=== PATIENT | male | born 1950 | race Caucasian/White ===

== ENCOUNTER 2016-10-10 09:09 | Emergency (ER) | payer MEDICARE ==
[~2016-10-10] VITALS: Ht 160 cm; Wt 56.8 kg
[~2016-10-10 09:09] MED LIST: ADVAIR IH; ASPIRIN E.C. 8181 MG PO; COREG 3.123.125 MG/T PO; COREG3.125 MG PO; GLUCOPHAGE850 MG/TAB PO; GLUCOTROL10 MG PO; LANTUS100 U/ML SQ; LASIX 40MG TABL40 MG PO; LASIX20 MG PO; LEVAQUIN 5500 MG/TA1 PO; MEDROL 4MG DOSPA4 MG PO; METFORMIN750 MG PO; PROVENTIL0.09 MG/A1 IH; RT ADVAIR 228 DISKUS IH; TOPROL XL 25MG25 MG PO
[2016-10-10 09:11] VITALS: BP 138/69; PULSE 83; TEMP 99.1
[2016-10-10] MEDS ORDERED: LEVEMIR SQ (09:18)
[2016-10-10] MEDS ORDERED: NOVLOG SQ (09:19)
[2016-10-10 10:29] LABS: ADJUSTED CALCIUM 9.1 mg/dL (8.4-10.2); ALBUMIN 3.4 gm/dL (3.5-5.0); BILIRUBIN,TOTAL 1.2 mg/dL (0.0-1.0); CALCIUM 8.6 mg/dL (8.4-10.2); CREATININE, serum 0.79 mg/dL (0.66-1.25); POTASSIUM 4.3 mmol/L (3.4-5.0); TOTAL PROTEIN 6.2 gm/dL (6.4-8.2)
[2016-10-10 10:31] LABS: BASO # 0.1 (0.0-0.2); BASO % 0.4 % (0.0-2.0); EOS # 0.1 (0.0-0.7); EOS % 0.6 % (0-4.0); GRAN # 10.8 (1.4-6.5); GRAN % 79.3 % (42.2-75.2); HEMATOCRIT 44.6 % (42.0-52.0); HEMOGLOBIN 15.1 g/dl (13.5-18.0); LYMPH # 1.7 (1.2-3.4); LYMPH % 12.4 % (20.0-51.0); MEAN CELL VOLUME 86 fl (80.0-100.0); MEAN CORPUSCULAR HEMOGLOBIN 29 pg (27.0-31.0); MEAN CORPUSCULAR HGB CONC 34 g/dl (33.0-37.0); MEAN PLATELET VOLUME 9.7 fl (7.4-10.4); MONO # 0.9 (0.1-0.6); MONO % 6.9 % (1.7-9.3); PLATELET COUNT 308 K/mm3 (130-400); RED BLOOD COUNT 5.16 M/mm3 (4.20-5.60); WHITE BLOOD COUNT 13.6 K/mm3 (4.8-10.8)
[2016-10-10 10:44] LABS: PH 5 (5-8); SQUAMOUS EPITHELIAL 0-2 /hpf; URINE APPEARANCE Clear; URINE BACTERIA None Seen /hpf; URINE BILIRUBIN Negative (NEGATIVE); URINE BLOOD Negative (NEGATIVE); URINE COLOR Yellow; URINE GLUCOSE 3+ (NEGATIVE); URINE KETONE Trace (NEGATIVE); URINE UROBILINOGEN Negative (NEGATIVE)
[2016-10-10] MEDS ORDERED: DOXYCYCLINE 10100 MG PO (11:16)
== END 2016-10-10 11:41 | disposition home or self-care (01) ==
LOC: COL.ER 09:09
PROVIDERS: Emergency Medicine
DX: L03.211 Cellulitis of face (principal); E11.65 Type 2 diabetes mellitus with hyperglycemia; Z79.4 Long term (current) use of insulin

== ENCOUNTER → 2017-12-21 | Outpatient (CLI) | payer MEDICARE ==
[~2017-12-21] MED LIST changes: +DOXYCYCLINE 10100 MG PO; +LEVEMIR SQ; +NOVLOG SQ
== END ==
LOC: SUN.DIA 08:43
DX: E11.9 Type 2 diabetes mellitus without complications (principal); Z79.4 Long term (current) use of insulin; E78.5 Hyperlipidemia, unspecified; Z68.21 Body mass index [BMI] 21.0-21.9, adult; Z71.3 Dietary counseling and surveillance; F17.210 Nicotine dependence, cigarettes, uncomplicated
CPT/HCPCS: G0108

== ENCOUNTER 2018-03-12 11:17 | Emergency (ER) | payer MEDICARE ==
[~2018-03-12] VITALS: Ht 160 cm; Wt 54.5 kg
[2018-03-12 11:20] VITALS: BP 127/58; TEMP 97.8
[2018-03-12] MEDS ORDERED: PRAVACHOL 40MG40 MG PO (12:39)
[2018-03-12] MEDS ORDERED: PLETAL50 MG PO (12:41)
[2018-03-12] MEDS ORDERED: ATARAX 10MG10 MG/TAB PO (12:41)
[2018-03-12] MEDS ORDERED: NEURONTIN300 MG/CAP PO (12:41)
[2018-03-12] MEDS ORDERED: K-DUR 10 MEQ T10 MEQ PO (12:42)
[2018-03-12 13:31] VITALS: PULSE 61
== END 2018-03-12 13:32 | disposition home or self-care (01) ==
LOC: COL.ER 11:17
DX: L03.012 Cellulitis of left finger (principal); E11.9 Type 2 diabetes mellitus without complications; I10 Essential (primary) hypertension; J43.9 Emphysema, unspecified; F17.210 Nicotine dependence, cigarettes, uncomplicated; Z79.4 Long term (current) use of insulin; Z79.82 Long term (current) use of aspirin

== ENCOUNTER → 2018-08-06 | Outpatient (CLI) | payer MEDICARE ==
[~2018-08-06] MED LIST changes: +ATARAX 10MG10 MG/TAB PO; +K-DUR 10 MEQ T10 MEQ PO; +NEURONTIN300 MG/CAP PO; +PLETAL50 MG PO; +PRAVACHOL 40MG40 MG PO
== END ==
LOC: COL.RAD 12:36
DX: I70.213 Atherosclerosis of native arteries of extremities with intermittent claudication, bilateral legs (principal); I74.5 Embolism and thrombosis of iliac artery; N40.0 Benign prostatic hyperplasia without lower urinary tract symptoms; I74.3 Embolism and thrombosis of arteries of the lower extremities
CPT/HCPCS: Q9967

== ENCOUNTER → 2018-12-31 | Outpatient (CLI) | payer MEDICARE ==
[~2018-12-31] MED LIST changes: +FLOMAX 0.40.4 MG/CAP PO
[2018-12-31 11:54] LABS: BASO # 0.1 (0.0-0.2); BASO % 0.6 % (0.0-2.0); EOS # 0.4 (0.0-0.7); EOS % 2.2 % (0-4.0); GRAN # 10.5 (1.4-6.5); GRAN % 64.6 % (42.2-75.2); HEMOGLOBIN 10.2 g/dl (13.5-18.0); LYMPH # 4.2 (1.2-3.4); LYMPH % 25.8 % (20.0-51.0); MEAN CELL VOLUME 68 fl (80.0-100.0); MEAN CORPUSCULAR HEMOGLOBIN 21 pg (27.0-31.0); MEAN CORPUSCULAR HGB CONC 30 g/dl (33.0-37.0); MEAN PLATELET VOLUME 9.1 fl (7.4-10.4); MONO % 6.2 % (1.7-9.3); PLATELET COUNT 417 K/mm3 (130-400); RED BLOOD COUNT 4.96 M/mm3 (4.20-5.60); REDCELL DISTRIBUTION WIDTH-CV 16.9 % (11.5-14.5)
[2018-12-31 11:55] LABS: HEMATOCRIT 33.5 % (42.0-52.0)
[2018-12-31 12:04] LABS: ALANINE AMINOTRANSFERASE 8 U/L (21-72); ALBUMIN 3.5 gm/dL (3.5-5.0); ALKALINE PHOSPHATASE 122 U/L (50-136); ANION GAP 10 mmol/L (7-16); AST,SGOT 21 U/L (15-37); BILIRUBIN,TOTAL 0.3 mg/dL (0.0-1.0); BLOOD UREA NITROGEN 30 mg/dL (9-20); CALCIUM 9.2 mg/dL (8.4-10.2); CARBON DIOXIDE 25 mmol/L (22-30); CHLORIDE 99 mmol/L (98-107); CREATININE, serum 0.82 (0.66-1.25); GLUCOSE 138 mg/dL (74-106); SODIUM 134 mmol/L (137-145); TOTAL PROTEIN 6.9 gm/dL (6.4-8.2)
[2018-12-31 12:16] LABS: TROPONIN-I < 0.012 ng/mL (0.000-0.035)
== END ==
LOC: COL.RAD 11:14 → COL.LAB 11:14
PROVIDERS: Registered Nurse
DX: E11.65 Type 2 diabetes mellitus with hyperglycemia (principal); R91.8 Other nonspecific abnormal finding of lung field; R06.02 Shortness of breath; E78.5 Hyperlipidemia, unspecified; F17.210 Nicotine dependence, cigarettes, uncomplicated; M79.602 Pain in left arm

== ENCOUNTER 2019-01-02 20:25 | Emergency (ER) | payer MEDICARE ==
[~2019-01-02] VITALS: Ht 157.5 cm; Wt 50.0 kg
[~2019-01-02 20:25] MED LIST changes: -FLOMAX 0.40.4 MG/CAP PO
[2019-01-02 20:45] VITALS: TEMP 97.3
[2019-01-02 21:38] LABS: COLLECTION METHOD CLEAN CATCH
[2019-01-02 21:43] LABS: BASO # 0.1 (0.0-0.2); BASO % 0.7 % (0.0-2.0); EOS # 0.2 (0.0-0.7); EOS % 1.6 % (0-4.0); GRAN # 9.8 (1.4-6.5); GRAN % 72.4 % (42.2-75.2); LYMPH # 2.6 (1.2-3.4); LYMPH % 18.9 % (20.0-51.0); MEAN CELL VOLUME 68 fl (80.0-100.0); MEAN CORPUSCULAR HGB CONC 31 g/dl (33.0-37.0); MONO # 0.8 (0.1-0.6); MONO % 5.8 % (1.7-9.3); PLATELET COUNT 398 K/mm3 (130-400); RED BLOOD COUNT 4.75 M/mm3 (4.20-5.60); REDCELL DISTRIBUTION WIDTH-CV 17.3 % (11.5-14.5)
[2019-01-02 21:47] LABS: HEMATOCRIT 32.5 % (42.0-52.0); HEMOGLOBIN 9.9 g/dl (13.5-18.0); MEAN CORPUSCULAR HEMOGLOBIN 21 pg (27.0-31.0)
[2019-01-02 22:03] LABS: PH 5 (5-8); SQUAMOUS EPITHELIAL None Seen /hpf; URINE APPEARANCE Hazy; URINE BACTERIA None Seen /hpf; URINE BILIRUBIN Negative (NEGATIVE); URINE BLOOD Negative (NEGATIVE); URINE COLOR Yellow; URINE GLUCOSE 3+ (NEGATIVE); URINE KETONE Negative (NEGATIVE); URINE LEUKOCYTE ESTERASE 2+ (NEGATIVE); URINE NITRATE Negative (NEGATIVE); URINE PROTEIN(semi-quant) Negative (NEGATIVE); URINE UROBILINOGEN Negative (NEGATIVE)
[2019-01-02 22:26] LABS: ALBUMIN 3.3 gm/dL (3.5-5.0); BILIRUBIN,TOTAL 0.3 mg/dL (0.0-1.0); CREATININE, serum 0.62 (0.66-1.25); POTASSIUM 4.6 mmol/L (3.4-5.0); TOTAL PROTEIN 6.5 gm/dL (6.4-8.2)
[2019-01-02] MEDS ORDERED: FLOMAX 0.40.4 MG/CAP PO (22:49)
[2019-01-02 23:48] VITALS: BP 112/61
[2019-01-03 00:26] VITALS: PULSE 91
== END 2019-01-03 00:26 | disposition home or self-care (01) ==
LOC: COL.ER 20:25
PROVIDERS: Emergency Medicine
DX: N39.0 Urinary tract infection, site not specified (principal); E11.65 Type 2 diabetes mellitus with hyperglycemia; Z79.84 Long term (current) use of oral hypoglycemic drugs; Z79.82 Long term (current) use of aspirin
CPT/HCPCS: J0696; J1815; J7030

== ENCOUNTER 2019-01-08 16:51 | Emergency (ER) | payer MEDICARE ==
[~2019-01-08] VITALS: Ht 157.5 cm; Wt 50.0 kg
[~2019-01-08 16:51] MED LIST changes: +FLOMAX 0.40.4 MG/CAP PO
[2019-01-08 17:44] VITALS: TEMP 98.6
[2019-01-08 19:07] LABS: COLLECTION METHOD IN
[2019-01-08 19:15] LABS: PH 5 (5-8); SQUAMOUS EPITHELIAL None Seen /hpf; URINE APPEARANCE Clear; URINE BACTERIA None Seen /hpf; URINE BILIRUBIN Negative (NEGATIVE); URINE BLOOD Negative (NEGATIVE); URINE COLOR Yellow; URINE GLUCOSE 3+ (NEGATIVE); URINE KETONE Trace (NEGATIVE); URINE LEUKOCYTE ESTERASE Negative (NEGATIVE); URINE NITRATE Negative (NEGATIVE); URINE PROTEIN(semi-quant) Negative (NEGATIVE); URINE RBC None Seen /hpf; URINE UROBILINOGEN Negative (NEGATIVE)
[2019-01-08 19:36] LABS: BASO # 0.1 (0.0-0.2); BASO % 0.6 % (0.0-2.0); EOS # 0.2 (0.0-0.7); EOS % 1.9 % (0-4.0); GRAN # 8.6 (1.4-6.5); GRAN % 68.6 % (42.2-75.2); LYMPH # 2.9 (1.2-3.4); LYMPH % 22.7 % (20.0-51.0); MEAN CELL VOLUME 69 fl (80.0-100.0); MEAN CORPUSCULAR HGB CONC 30 g/dl (33.0-37.0); MEAN PLATELET VOLUME 9.6 fl (7.4-10.4); MONO # 0.8 (0.1-0.6); PLATELET COUNT 410 K/mm3 (130-400); RED BLOOD COUNT 4.44 M/mm3 (4.20-5.60); REDCELL DISTRIBUTION WIDTH-CV 17.5 % (11.5-14.5)
[2019-01-08 19:46] LABS: CALCIUM 8.5 mg/dL (8.4-10.2); CREATININE, serum 0.72 (0.66-1.25); HEMATOCRIT 30.4 % (42.0-52.0); HEMOGLOBIN 9.2 g/dl (13.5-18.0); MEAN CORPUSCULAR HEMOGLOBIN 21 pg (27.0-31.0); POTASSIUM 3.4 mmol/L (3.4-5.0)
[2019-01-08] MEDS ORDERED: FLOMAX 0.40.4 MG/CAP PO (21:57)
[2019-01-08 22:02] VITALS: BP 117/63; PULSE 87
== END 2019-01-08 22:02 | disposition home or self-care (01) ==
LOC: COL.ER 16:51
PROVIDERS: Physician Assistant
DX: R33.9 Retention of urine, unspecified (principal); E11.65 Type 2 diabetes mellitus with hyperglycemia; R79.89 Other specified abnormal findings of blood chemistry; I10 Essential (primary) hypertension; J43.9 Emphysema, unspecified; F17.210 Nicotine dependence, cigarettes, uncomplicated; Z90.89 Acquired absence of other organs; Z79.4 Long term (current) use of insulin
CPT/HCPCS: J1815; J7030

== ENCOUNTER 2019-02-14 10:54 | Emergency (ER) | payer MEDICARE ==
[~2019-02-14] VITALS: Ht 157.5 cm; Wt 50.0 kg
[2019-02-14 11:02] VITALS: TEMP 99
[2019-02-14 11:41] LABS: BASO # 0.1 (0.0-0.2); BASO % 0.3 % (0.0-2.0); EOS # 0.1 (0.0-0.7); EOS % 0.5 % (0-4.0); GRAN # 15.8 (1.4-6.5); LYMPH # 1.7 (1.2-3.4); LYMPH % 9.1 % (20.0-51.0); MEAN CELL VOLUME 68 fl (80.0-100.0); MEAN CORPUSCULAR HGB CONC 29 g/dl (33.0-37.0); MEAN PLATELET VOLUME 9.3 fl (7.4-10.4); MONO # 1.3 (0.1-0.6); MONO % 6.6 % (1.7-9.3); PLATELET COUNT 516 K/mm3 (130-400); RED BLOOD COUNT 4.53 M/mm3 (4.20-5.60)
[2019-02-14 11:42] LABS: HEMATOCRIT 30.8 % (42.0-52.0); MEAN CORPUSCULAR HEMOGLOBIN 20 pg (27.0-31.0)
[2019-02-14 11:50] LABS: ALBUMIN 3.2 gm/dL (3.5-5.0); BILIRUBIN,TOTAL 0.5 mg/dL (0.0-1.0); CALCIUM 8.8 mg/dL (8.4-10.2); CREATININE, serum 0.53 (0.66-1.25); TOTAL PROTEIN 6.7 gm/dL (6.4-8.2)
[2019-02-14 11:52] LABS: POTASSIUM 2.9 mmol/L (3.4-5.0)
[2019-02-14 12:05] LABS: COLLECTION METHOD CATHETER
[2019-02-14 12:32] LABS: MUCOUS Present /lpf; PH 5 (5-8); SQUAMOUS EPITHELIAL None Seen /hpf; URINE APPEARANCE Cloudy; URINE BACTERIA Occasional /hpf; URINE BILIRUBIN Negative (NEGATIVE); URINE BLOOD 3+ (NEGATIVE); URINE COLOR Amber; URINE GLUCOSE Negative (NEGATIVE); URINE KETONE Trace (NEGATIVE); URINE LEUKOCYTE ESTERASE 2+ (NEGATIVE); URINE NITRATE Positive (NEGATIVE); URINE PROTEIN(semi-quant) 2+ (NEGATIVE); URINE RBC >50 /hpf
[2019-02-14] MEDS ORDERED: PYRIDIUM200 M1 PO (13:33)
[2019-02-14] MEDS ORDERED: OMNICEF 300MG300 MG PO (13:33)
[2019-02-14 15:04] VITALS: BP 113/45; PULSE 73
== END 2019-02-14 15:25 | disposition home or self-care (01) ==
LOC: COL.ER 10:54
PROVIDERS: Emergency Medicine
DX: N39.0 Urinary tract infection, site not specified (principal); E11.9 Type 2 diabetes mellitus without complications; Z79.82 Long term (current) use of aspirin; Z79.4 Long term (current) use of insulin
CPT/HCPCS: J0696; J1450; J3480; J7030

== ENCOUNTER → 2019-03-03 | Outpatient (CLI) | payer MEDICARE ==
[~2019-03-03] MED LIST changes: +OMNICEF 300MG300 MG PO; +PYRIDIUM200 M1 PO
[2019-03-03 11:12] LABS: MEAN CELL VOLUME 67 fl (80.0-100.0); MEAN CORPUSCULAR HGB CONC 29 g/dl (33.0-37.0); MEAN PLATELET VOLUME 9.7 fl (7.4-10.4); PLATELET COUNT 387 K/mm3 (130-400); REDCELL DISTRIBUTION WIDTH-CV 17.5 % (11.5-14.5)
[2019-03-03 11:16] LABS: HEMOGLOBIN 9.7 g/dl (13.5-18.0); MEAN CORPUSCULAR HEMOGLOBIN 19 pg (27.0-31.0)
[2019-03-03 11:22] LABS: ALBUMIN 3.5 gm/dL (3.5-5.0); CALCIUM 8.7 mg/dL (8.4-10.2); CREATININE, serum 0.61 (0.66-1.25); POTASSIUM 4.4 mmol/L (3.4-5.0); TOTAL PROTEIN 6.7 gm/dL (6.4-8.2)
== END ==
LOC: COL.LAB 10:24
PROVIDERS: Internal Medicine Interventional Cardiology
DX: I70.213 Atherosclerosis of native arteries of extremities with intermittent claudication, bilateral legs (principal)

== ENCOUNTER → 2019-12-06 | Outpatient (CLI) | payer MEDICARE ==
[~2019-12-06] MED LIST changes: +AMOXICILLIN 8751 TAB PO; +BACTRIM DS 8001 TAB PO; +PLAVIX 75MG TAB75 MG PO; +TEMOVATE0.052
[2019-12-06 11:51] LABS: COLLECTION METHOD CATHETER
[2019-12-06 11:55] LABS: MEAN CELL VOLUME 68 fl (80.0-100.0); MEAN CORPUSCULAR HGB CONC 29 g/dl (33.0-37.0); MEAN PLATELET VOLUME 9.1 fl (7.4-10.4); PLATELET COUNT 373 K/mm3 (130-400); RED BLOOD COUNT 4.68 M/mm3 (4.20-5.60)
[2019-12-06 11:58] LABS: HEMATOCRIT 31.6 % (42.0-52.0); HEMOGLOBIN 9.1 g/dl (13.5-18.0); MEAN CORPUSCULAR HEMOGLOBIN 19 pg (27.0-31.0)
[2019-12-06 12:12] LABS: ALANINE AMINOTRANSFERASE 9 U/L (4-49); ALBUMIN 3.5 gm/dL (3.5-5.0); AST,SGOT 15 U/L (15-37); BILIRUBIN,TOTAL 0.6 mg/dL (0.0-1.0); BLOOD UREA NITROGEN 20 mg/dL (9-20); CHLORIDE 99 mmol/L (98-107); POTASSIUM 4.4 mmol/L (3.4-5.0)
[2019-12-06 12:18] LABS: BUDDING YEAST Present /hpf; MUCOUS Present /lpf; PH 5 (5-8); SQUAMOUS EPITHELIAL None Seen /hpf; URINE APPEARANCE Cloudy; URINE BACTERIA Rare /hpf; URINE BILIRUBIN Negative (NEGATIVE); URINE BLOOD 2+ (NEGATIVE); URINE COLOR Yellow; URINE GLUCOSE 3+ (NEGATIVE); URINE KETONE Negative (NEGATIVE); URINE LEUKOCYTE ESTERASE 3+ (NEGATIVE); URINE NITRATE Positive (NEGATIVE); URINE PROTEIN(semi-quant) 1+ (NEGATIVE); URINE UROBILINOGEN Negative (NEGATIVE)
[2019-12-06 12:23] LABS: ERYTHROCYTE SEDIMENTATION RATE 16 mm/hr (0-30)
[2019-12-06 12:30] LABS: ALKALINE PHOSPHATASE 117 U/L (50-136); ANION GAP 8 mmol/L (7-16); CALCIUM 8.6 mg/dL (8.4-10.2); CARBON DIOXIDE 26 mmol/L (22-30); SODIUM 133 mmol/L (137-145); TOTAL PROTEIN 6.9 gm/dL (6.4-8.2)
[2019-12-06 12:33] LABS: GLUCOSE 423 mg/dL (74-106)
[2019-12-06 12:34] LABS: TROPONIN-I < 0.012 ng/mL (0.000-0.035)
== END ==
LOC: COL.LAB 10:46
PROVIDERS: Internal Medicine Interventional Cardiology
DX: R42 Dizziness and giddiness (principal); N39.0 Urinary tract infection, site not specified; I95.9 Hypotension, unspecified

== ENCOUNTER 2019-12-21 11:03 | Emergency (ER) | payer MEDICARE ==
[~2019-12-21] VITALS: Ht 157.5 cm; Wt 47.7 kg
[2019-12-21 11:08] VITALS: TEMP 97.6
[2019-12-21 12:08] LABS: ARTERIAL BLD GAS O2 SATURATION 91.7 % (92-100); ARTERIAL BLD GAS TCO2 CT 26.8; ARTERIAL BLOOD GAS BASE EXCESS 2.3 (-2-2); ARTERIAL BLOOD GAS HCO3 25.7 meq/L (22-26); ARTERIAL BLOOD GAS PCO2 35.3 mmHg (35-45); ARTERIAL BLOOD GAS PO2 53.8 mmHg (80-100); ARTERIAL BLOOD GAS pH 7.48 (7.35-7.45)
[2019-12-21 12:11] LABS: BASO # 0.1 (0.0-0.2); BASO % 0.5 % (0.0-2.0); EOS # 0.1 (0.0-0.7); EOS % 1.2 % (0-4.0); GRAN # 7.6 (1.4-6.5); GRAN % 80.5 % (42.2-75.2); LYMPH # 1.1 (1.2-3.4); LYMPH % 11.4 % (20.0-51.0); MEAN CELL VOLUME 66 fl (80.0-100.0); MEAN CORPUSCULAR HGB CONC 29 g/dl (33.0-37.0); MEAN PLATELET VOLUME 9.5 fl (7.4-10.4); MONO # 0.6 (0.1-0.6); MONO % 5.8 % (1.7-9.3); PLATELET COUNT 390 K/mm3 (130-400); RED BLOOD COUNT 4.48 M/mm3 (4.20-5.60); REDCELL DISTRIBUTION WIDTH-CV 19.2 % (11.5-14.5)
[2019-12-21 12:14] LABS: HEMATOCRIT 29.7 % (42.0-52.0); HEMOGLOBIN 8.5 g/dl (13.5-18.0); MEAN CORPUSCULAR HEMOGLOBIN 19 pg (27.0-31.0)
[2019-12-21 12:21] LABS: ALBUMIN 3.1 gm/dL (3.5-5.0); BILIRUBIN,TOTAL 0.6 mg/dL (0.0-1.0); CALCIUM 8.5 mg/dL (8.4-10.2); CREATININE, serum 0.59 (0.66-1.25); POTASSIUM 3.6 mmol/L (3.4-5.0); TOTAL PROTEIN 6.3 gm/dL (6.4-8.2)
[2019-12-21 13:09] LABS: COLLECTION METHOD CLEAN CATCH
[2019-12-21 13:19] LABS: MUCOUS Present /lpf; PH 6 (5-8); SQUAMOUS EPITHELIAL None Seen /hpf; URINE APPEARANCE Hazy; URINE BACTERIA Rare /hpf; URINE BILIRUBIN Negative (NEGATIVE); URINE BLOOD Negative (NEGATIVE); URINE COLOR Yellow; URINE GLUCOSE 3+ (NEGATIVE); URINE KETONE Trace (NEGATIVE); URINE LEUKOCYTE ESTERASE Trace (NEGATIVE); URINE NITRATE Positive (NEGATIVE); URINE PROTEIN(semi-quant) Negative (NEGATIVE); URINE RBC 0-2 /hpf; URINE UROBILINOGEN Negative (NEGATIVE)
[2019-12-21] MEDS ORDERED: OMNICEF 300MG300 MG PO (14:07)
[2019-12-21 14:50] VITALS: BP 123/67; PULSE 84
[2019-12-24] MEDS ORDERED: BACTRIM DS 8001 TAB PO (11:26)
== END 2019-12-21 14:54 | disposition home or self-care (01) ==
LOC: COL.ER 11:03
PROVIDERS: Family Medicine
DX: E11.65 Type 2 diabetes mellitus with hyperglycemia (principal); N39.0 Urinary tract infection, site not specified; E86.0 Dehydration; F17.210 Nicotine dependence, cigarettes, uncomplicated; Z79.82 Long term (current) use of aspirin; Z79.4 Long term (current) use of insulin
CPT/HCPCS: J0696; J1815; J7120

== ENCOUNTER → 2020-03-29 | Outpatient (CLI) | payer MEDICARE ==
[~2020-03-29] MED LIST changes: +IPRATROPIUM BROM3 M1 IH; +LASIX 20MG TABL20 MG PO; +LIPITOR 40MG TA40 MG PO; +NICODERM C7 MG/PATCH TD; +NITROSTAT0.3 MG SL; +NOVOLOG 100U100 U/M1 SQ; +RT ALBUTER2.5 MG/0.5 IH
[2020-03-29 14:48] LABS: BASO % 0.1 % (0.0-2.0); EOS # 0.1 (0.0-0.7); EOS % 0.4 % (0-4.0); GRAN % 87.1 % (42.2-75.2); LYMPH # 1.4 (1.2-3.4); LYMPH % 8.3 % (20.0-51.0); MEAN CELL VOLUME 70 fl (80.0-100.0); MEAN CORPUSCULAR HGB CONC 26 g/dl (33.0-37.0); MEAN PLATELET VOLUME 9.4 fl (7.4-10.4); MONO # 0.6 (0.1-0.6); MONO % 3.5 % (1.7-9.3); PLATELET COUNT 430 K/mm3 (130-400); RED BLOOD COUNT 3.29 M/mm3 (4.20-5.60); REDCELL DISTRIBUTION WIDTH-CV 22.7 % (11.5-14.5)
[2020-03-29 14:49] LABS: HEMATOCRIT 22.9 % (42.0-52.0); MEAN CORPUSCULAR HEMOGLOBIN 18 pg (27.0-31.0)
[2020-03-29 19:15] LABS: ALBUMIN 2.4 gm/dL (3.5-5.0); BILIRUBIN,TOTAL 0.6 mg/dL (0.0-1.0); CALCIUM 7.3 mg/dL (8.4-10.2); CREATININE, serum 0.64 (0.66-1.25); POTASSIUM 4.4 mmol/L (3.4-5.0); TOTAL PROTEIN 5.1 gm/dL (6.4-8.2)
== END ==
LOC: ZLAB.STJ 13:55
PROVIDERS: Family Medicine
DX: I50.9 Heart failure, unspecified (principal)

== ENCOUNTER 2020-04-01 08:56 | Inpatient (IN) | payer MEDICARE, OTHER ==
[~2020-04-01] VITALS: Ht 160 cm; Wt 50.2 kg
[2020-04-01] VITALS (408 sets, daily range): BP systolic 86–129; BP diastolic 48–65; PULSE 58–79; TEMP 7.6; O2SAT 93–100
[~2020-04-01 08:56] MED LIST changes: -NICODERM C7 MG/PATCH TD; -NOVOLOG 100U100 U/M1 SQ; -RT ALBUTER2.5 MG/0.5 IH
[2020-04-01 09:15] LABS: PROTHROMBIN TIME 10.6 SECONDS (9.7-12.8)
[2020-04-01 09:17] LABS: BASO % 0.2 % (0.0-2.0); EOS % 0.1 % (0-4.0); GRAN # 14.6 (1.4-6.5); GRAN % 88.2 % (42.2-75.2); LYMPH % 6.2 % (20.0-51.0); MEAN CELL VOLUME 68 fl (80.0-100.0); MEAN CORPUSCULAR HGB CONC 27 g/dl (33.0-37.0); MEAN PLATELET VOLUME 9.3 fl (7.4-10.4); MONO # 0.8 (0.1-0.6); MONO % 4.8 % (1.7-9.3); PLATELET COUNT 543 K/mm3 (130-400); RED BLOOD COUNT 3.43 M/mm3 (4.20-5.60)
[2020-04-01 09:17] LABS: ARTERIAL BLD GAS O2 SATURATION 85.7 % (92-100); ARTERIAL BLD GAS TCO2 CT 29.1; ARTERIAL BLOOD GAS BASE EXCESS 2.1 (-2-2); ARTERIAL BLOOD GAS HCO3 27.6 meq/L (22-26); ARTERIAL BLOOD GAS PCO2 48.6 mmHg (35-45); ARTERIAL BLOOD GAS PO2 54.2 mmHg (80-100); ARTERIAL BLOOD GAS pH 7.37 (7.35-7.45)
[2020-04-01 09:18] LABS: HEMATOCRIT 23.2 % (42.0-52.0); MEAN CORPUSCULAR HEMOGLOBIN 18 pg (27.0-31.0)
[2020-04-01 09:19] LABS: HEMOGLOBIN 6.3 g/dl (13.5-18.0)
[2020-04-01 09:23] LABS: BILIRUBIN,TOTAL 0.4 mg/dL (0.0-1.0); CALCIUM 7.8 mg/dL (8.4-10.2); CREATININE, serum 0.72 (0.66-1.25); POTASSIUM 3.9 mmol/L (3.4-5.0); TOTAL PROTEIN 6.5 gm/dL (6.4-8.2)
[2020-04-01] MEDS ORDERED: RT ALBUTER2.5 MG/0.5 IH (09:26)
[2020-04-01 09:36] LABS: COLLECTION METHOD IN
[2020-04-01 09:40] LABS: TROPONIN-I 0.55 ng/mL (0.000-0.035)
[2020-04-01 10:04] LABS: BUDDING YEAST Present /hpf; MUCOUS Present /lpf; PH 5 (5-8); SQUAMOUS EPITHELIAL None Seen /hpf; URINE APPEARANCE Cloudy; URINE BACTERIA Rare /hpf; URINE BILIRUBIN Negative (NEGATIVE); URINE BLOOD Negative (NEGATIVE); URINE COLOR Yellow; URINE GLUCOSE Negative (NEGATIVE); URINE KETONE Negative (NEGATIVE); URINE LEUKOCYTE ESTERASE 2+ (NEGATIVE); URINE NITRATE Negative (NEGATIVE); URINE PROTEIN(semi-quant) 2+ (NEGATIVE); URINE RBC 0-2 /hpf; URINE UROBILINOGEN Negative (NEGATIVE)
[2020-04-01] MEDS ORDERED: NOVOLOG 100U100 U/M1 SQ (10:14)
[2020-04-01] MEDS ORDERED: NICODERM C7 MG/PATCH TD (10:15)
[2020-04-01 10:23] LABS: MAGNESIUM 1.7 mg/dL (1.6-2.3)
--- NOTE | 2020-04-01 15:11 | NUR ---
Assumed care of PT at 1350. PT is sedate and intubated. PT moved from ED stretcher to ICU bed without incident. PT opens eyes and withdraws from pain. Vitals are WNL at this time. PT is currenlty resting in bed and appears to be comfortable. Will continue to monitor.
[2020-04-02] VITALS (1160 sets, daily range): BP systolic 104–148; BP diastolic 49–85; PULSE 60–80; TEMP 97.5–98.7; O2SAT 49–100
--- NOTE | 2020-04-02 00:15 | NUR ---
PATIENT RESTING COMFORTABLE ON COT, MOVES ALL EXTREMITIES, LEFT SIDE MORE MOVEMENT THAN RIGHT SIDE PATIENT MOVE HIS HEAD TOWARD EXTRENAL STIMULI SUCH VOICE, NO EYE OPENING
--- NOTE | 2020-04-02 04:47 | NUR ---
UPON ASSESSMENT PATIENT WILL MOVE LEGS, LEFT ARM, AND HEAD IN A NONCONTROLLED MANNER. PUPILS REMAINED CLOSED DURING EXTERNAL VERBAL STIMULI, PUPILS = AND REACTIVE TO LIGHT AT 2 MM
[2020-04-02 05:23] LABS: BASO # 0.1 (0.0-0.2); BASO % 0.4 % (0.0-2.0); EOS # 0.1 (0.0-0.7); EOS % 0.7 % (0-4.0); GRAN # 11.3 (1.4-6.5); GRAN % 83.2 % (42.2-75.2); LYMPH # 1.3 (1.2-3.4); LYMPH % 9.8 % (20.0-51.0); MEAN CELL VOLUME 70 fl (80.0-100.0); MEAN CORPUSCULAR HGB CONC 30 g/dl (33.0-37.0); MEAN PLATELET VOLUME 9.2 fl (7.4-10.4); MONO # 0.7 (0.1-0.6); MONO % 5.4 % (1.7-9.3); RED BLOOD COUNT 3.58 M/mm3 (4.20-5.60)
[2020-04-02 05:26] LABS: HEMATOCRIT 24.9 % (42.0-52.0); HEMOGLOBIN 7.5 g/dl (13.5-18.0); MEAN CORPUSCULAR HEMOGLOBIN 21 pg (27.0-31.0)
[2020-04-02 05:30] LABS: PLATELET COUNT 369 K/mm3 (130-400)
[2020-04-02 05:35] LABS: CALCIUM 7.2 mg/dL (8.4-10.2); CREATININE, serum 0.67 (0.66-1.25); POTASSIUM 4.1 mmol/L (3.4-5.0)
[2020-04-02 05:49] LABS: TROPONIN-I 0.49 ng/mL (0.000-0.035)
[2020-04-02 05:52] LABS: ARTERIAL BLD GAS O2 SATURATION 98.4 % (92-100); ARTERIAL BLD GAS TCO2 CT 26.7; ARTERIAL BLOOD GAS BASE EXCESS 1.6 (-2-2); ARTERIAL BLOOD GAS HCO3 25.6 meq/L (22-26); ARTERIAL BLOOD GAS PCO2 37.3 mmHg (35-45); ARTERIAL BLOOD GAS PO2 127.8 mmHg (80-100); ARTERIAL BLOOD GAS pH 7.45 (7.35-7.45)
--- NOTE | 2020-04-02 06:33 | NUR ---
PATIENT BECOMES AWAKE FROM SEDATION VACATION REACHING FOR FACE, EYES OPEN, STOPS MOVEMENT WHEN PATIENT HERES STAFF IS IN ROOM.. AT THE MOMMENT PATIENT CAN MAKE PURPOSFUL MOVEMENT OF ALL EXTREMITIES.
--- NOTE | 2020-04-02 11:28 | NUR ---
Truck Technician contacted patient's , Candis (ph#[phone]) to complete intake as patient is currently intubated and on contact isolation. Patient is a readmit and was at [facility] 03/18/20-03/24/20 after he presented to the ED for shortness of breathe and cough. Patient was discharged on 03/24/20 to [facility]. Per Candis, before patient was admitted to the hospital, he lived at home with her and normally sees Benita Enriquez, Nurse Practitioner at [facility]. Patient's preferred pharmacy is [facility]. Candis denied any DME usage but per patient's last discharge planning notes, he has a CPAP and cane at home. Candis reports prior to him being hospitalized the last time, he was independent at home with ADLS. Candis states patient does not have Advance Directives but had talked about completing them while at [facility]. JOSÉ MANUEL contacted Iván at [facility] and faxed updates. At this time Iván anticipates that they could accept patient at discharge. Iván states he will check to see if patient had completed Advance Directives. JOSÉ MANUEL also consulted Susy Financial Counselor as patient may have completed Medicaid application recently. JOSÉ MANUEL will continue to follow.
[2020-04-02 14:10] LABS: MAGNESIUM 1.6 mg/dL (1.6-2.3); PHOSPHOROUS 3.8 mg/dL (2.5-4.5)
[2020-04-02 14:17] LABS: PRE ALBUMIN 13.6 mg/dL (17.6-36.0)
--- NOTE | 2020-04-02 15:00 | NUR ---
Tube feedings initiated per order
--- NOTE | 2020-04-02 19:28 | NUR ---
BEDSIDE REPORT GIVEN TO ORAL Horn RN.
--- NOTE | 2020-04-02 23:09 | NUR ---
ETUBE AUGUSTIN WAS CHANGED THE OLD ONE ON THE PT HAD LOST ITS STICKINESS AND WAS MOVING FREELY ON THE PTS FACE. REPLACED IT AND MADE SURE TUBE WAS PLACED AT 21 AT THE TEETH.
[2020-04-03] VITALS (839 sets, daily range): BP systolic 110–142; BP diastolic 48–63; PULSE 63–76; TEMP 97.9–98.9; O2SAT 88–100
[2020-04-03 05:28] LABS: MEAN CELL VOLUME 73 fl (80.0-100.0); MEAN CORPUSCULAR HGB CONC 30 g/dl (33.0-37.0); MEAN PLATELET VOLUME 9.2 fl (7.4-10.4); PLATELET COUNT 368 K/mm3 (130-400); RED BLOOD COUNT 3.45 M/mm3 (4.20-5.60); RETIC # 0.05 M/mm3 (0.02-0.16); RETIC % 1.5 % (0.5-3.52)
[2020-04-03 05:31] LABS: INR 1.2 (0.8-3.0); PROTHROMBIN TIME 13.4 SECONDS (9.7-12.8)
[2020-04-03 05:34] LABS: ALBUMIN 2.3 gm/dL (3.5-5.0); BILIRUBIN,TOTAL 0.5 mg/dL (0.0-1.0); CALCIUM 7.4 mg/dL (8.4-10.2); CREATININE, serum 0.57 (0.66-1.25); MAGNESIUM 1.7 mg/dL (1.6-2.3); POTASSIUM 3.9 mmol/L (3.4-5.0); TOTAL PROTEIN 5.2 gm/dL (6.4-8.2)
[2020-04-03 05:37] LABS: ARTERIAL BLD GAS O2 SATURATION 98.6 % (92-100); ARTERIAL BLD GAS TCO2 CT 26.4; ARTERIAL BLOOD GAS BASE EXCESS 0.8 (-2-2); ARTERIAL BLOOD GAS HCO3 25.2 meq/L (22-26); ARTERIAL BLOOD GAS PCO2 39.4 mmHg (35-45); ARTERIAL BLOOD GAS pH 7.42 (7.35-7.45)
[2020-04-03 05:39] LABS: ARTERIAL BLOOD GAS PO2 126.8 mmHg (80-100)
[2020-04-03 05:42] LABS: IRON,SERUM 14 ug/dL (35-150)
[2020-04-03 05:48] LABS: HEMATOCRIT 25.1 % (42.0-52.0); HEMOGLOBIN 7.5 g/dl (13.5-18.0); MEAN CORPUSCULAR HEMOGLOBIN 22 pg (27.0-31.0)
[2020-04-03 05:51] LABS: TOTAL IRON BINDING CAPACITY 307 ug/dL (261-462)
[2020-04-03 05:53] LABS: BAND 11 % (0-10); BASOPHIL 1 % (0-2); LYMPHOCYTE 9 % (20.0-51.0); NEUTROPHILS 79 % (42.0-75.2)
[2020-04-03 05:56] LABS: ANISOCYTOSIS 2+; MICROCYTOSIS 1+
[2020-04-03 05:57] LABS: SCHISTOCYTES 1+
[2020-04-03 05:58] LABS: PLATELET ESTIMATE NORMAL (NORMAL)
--- NOTE | 2020-04-03 06:07 | NUR ---
PT IS ON WEAN TRIAL VICENTE WELL WITH NO DISTRESS NOTED AT THIS TIME. PT IS ON 10/24.
--- NOTE | 2020-04-03 11:37 | NUR ---
Survey Rodman spoke with patient's , Candis who advised she thought she had a meeting wtih someone this morning from social media assistant. Candis was not sure who she was supposed to meet with. JOSÉ MANUEL followed up with Pamela Financial Counselor who states Candis was supposed to meet with her this morning and will call Candis to try to complete Medicaid application over the phone. JOSÉ MANUEL also faxed updates to Iván at [facility] and will continue to follow.
[2020-04-03 19:26] LABS: HEMATOCRIT 27.2 % (42.0-52.0); HEMOGLOBIN 8.3 g/dl (13.5-18.0)
[2020-04-04] VITALS (580 sets, daily range): BP systolic 122–167; BP diastolic 55–69; PULSE 71–82; TEMP 97.5–98.4; O2SAT 90–100
--- NOTE | 2020-04-04 02:30 | NUR ---
Pt with ongoing diarrhea. Low grade temp of 99.9 axillary. LANDY Rae notifed. New orders for rectal tube, prn tylenol, stool sample. Room slightly cooled. 0245: Rectal tube placed, pt tolerated well.
[2020-04-04 05:22] LABS: ARTERIAL BLD GAS O2 SATURATION 95.4 % (92-100); ARTERIAL BLOOD GAS BASE EXCESS -1.1 (-2-2); ARTERIAL BLOOD GAS HCO3 22.9 meq/L (22-26); ARTERIAL BLOOD GAS PCO2 35.6 mmHg (35-45); ARTERIAL BLOOD GAS pH 7.43 (7.35-7.45)
[2020-04-04 06:27] LABS: BASO # 0.1 (0.0-0.2); BASO % 0.3 % (0.0-2.0); EOS # 0.2 (0.0-0.7); EOS % 0.8 % (0-4.0); GRAN # 15.5 (1.4-6.5); GRAN % 87.1 % (42.2-75.2); LYMPH # 1.1 (1.2-3.4); LYMPH % 6.4 % (20.0-51.0); MEAN CELL VOLUME 73 fl (80.0-100.0); MEAN CORPUSCULAR HGB CONC 30 g/dl (33.0-37.0); MEAN PLATELET VOLUME 9.3 fl (7.4-10.4); MONO # 0.9 (0.1-0.6); PLATELET COUNT 363 K/mm3 (130-400); RED BLOOD COUNT 3.85 M/mm3 (4.20-5.60); REDCELL DISTRIBUTION WIDTH-CV 25.3 % (11.5-14.5)
--- NOTE | 2020-04-04 06:30 | NUR ---
PT IS ON WEAN TRIAL VICENTE WELL WITH NO DISTRESS NOTED AT THIS TIME. 10/24.
[2020-04-04 06:36] LABS: CALCIUM 7.4 mg/dL (8.4-10.2); CREATININE, serum 0.64 (0.66-1.25); HEMATOCRIT 28.2 % (42.0-52.0); HEMOGLOBIN 8.4 g/dl (13.5-18.0); MEAN CORPUSCULAR HEMOGLOBIN 22 pg (27.0-31.0); POTASSIUM 3.9 mmol/L (3.4-5.0)
--- NOTE | 2020-04-04 09:10 | NUR ---
PT BACK ON AC FOR IINCREASED RESP RATE. RN NOTIFIED.
--- NOTE | 2020-04-04 10:02 | NUR ---
Speech Language Therapist attended clinical rounds with the team and patient's is at bedside. JOSÉ MANUEL faxed clinical updates to Iván at [facility] and will continue to follow.
[2020-04-04 12:14] LABS: ARTERIAL BLOOD GAS HCO3 23.6 meq/L (22-26); ARTERIAL BLOOD GAS PCO2 35.4 mmHg (35-45); ARTERIAL BLOOD GAS PO2 73.5 mmHg (80-100); ARTERIAL BLOOD GAS pH 7.44 (7.35-7.45)
[2020-04-04 12:15] LABS: ARTERIAL BLD GAS O2 SATURATION 95.1 % (92-100); ARTERIAL BLOOD GAS BASE EXCESS -0.2 (-2-2)
[2020-04-04 17:32] LABS: CLOSTRIDIUM DIFF A/B NEG; CLOSTRIDIUM DIFF A/B INTERP No C.diff present
--- NOTE | 2020-04-04 19:10 | NUR ---
RECEIVED REPORT FROM LANE COLON. PT RESTING EASILY ON CURRENT VENT SETTINGS: TV 380, RR 16, FIO2 30%, PEEP 5. OGT AT 58CM WITH TF INFUSING AT 38ML/HR. VSS. FC PATENT AND DRAINING TO GRAVITY. SEE GTT FLOWSHEET.
[2020-04-05] VITALS (779 sets, daily range): BP systolic 127–166; BP diastolic 59–77; PULSE 64–78; TEMP 97.4–98.5; O2SAT 81–100
[2020-04-05 05:08] LABS: ARTERIAL BLD GAS O2 SATURATION 94.8 % (92-100); ARTERIAL BLD GAS TCO2 CT 25.2; ARTERIAL BLOOD GAS BASE EXCESS 0.1 (-2-2); ARTERIAL BLOOD GAS HCO3 24.1 meq/L (22-26); ARTERIAL BLOOD GAS PCO2 36.4 mmHg (35-45); ARTERIAL BLOOD GAS PO2 73.2 mmHg (80-100); ARTERIAL BLOOD GAS pH 7.44 (7.35-7.45)
--- NOTE | 2020-04-05 05:14 | NUR ---
RN NOTIFIED OF START OF CPAP TRIAL.
--- NOTE | 2020-04-05 05:36 | NUR ---
PT RESTLESS AND ATTEMPTING TO LEAN OVER TO REACH FOR ETT. PT ABLE TO LOOK AT NURSE WHEN SPEAKING TO HIM BUT IS NOT FOLLOWING INSTUCTIONS. ATTEMPTS MADE TO ORIENT PT TO SURROUNDINGS. PT TOLERATING SPONTAEOUS WEANING TRAIL. WILL CONTINUE TO MONITOR CLOSELY.
[2020-04-05 05:48] LABS: MEAN CELL VOLUME 75 fl (80.0-100.0); MEAN CORPUSCULAR HGB CONC 30 g/dl (33.0-37.0); MEAN PLATELET VOLUME 9.2 fl (7.4-10.4); PLATELET COUNT 357 K/mm3 (130-400); RED BLOOD COUNT 3.66 M/mm3 (4.20-5.60); REDCELL DISTRIBUTION WIDTH-CV 26.4 % (11.5-14.5)
[2020-04-05 05:53] LABS: HEMATOCRIT 27.3 % (42.0-52.0); HEMOGLOBIN 8.1 g/dl (13.5-18.0); MEAN CORPUSCULAR HEMOGLOBIN 22 pg (27.0-31.0)
[2020-04-05 06:02] LABS: CALCIUM 7.6 mg/dL (8.4-10.2); CREATININE, serum 0.53 (0.66-1.25); MAGNESIUM 2.1 mg/dL (1.6-2.3); PHOSPHOROUS 3.2 mg/dL (2.5-4.5); POTASSIUM 3.8 mmol/L (3.4-5.0)
--- NOTE | 2020-04-05 08:25 | NUR ---
at bedside, requests to visit with Dr. Amador about patient status. Dr. Amador notified, will visit with when returns to unit. Updates form this nurse given to , states "I didn't realize this machine was keeping him alive. That's not what he wants."
--- NOTE | 2020-04-05 09:48 | NUR ---
After meeting with Dr. Amador this morning, family was supposed to talk about goals of care and let this nurse know what their thoughts are. No family in the waiting rooms. Dr. Amador had previously given instructions to resume sedation and vent settings if family unavailable. This nurse attempted to contact , message left for her to return call. Sedation and vent settings resumed
--- NOTE | 2020-04-05 13:27 | NUR ---
Lay Out Machine Operator attended clinical rounds with the team. Patient's family met with Dr. Amador this morning to discuss goals of care. JOSÉ MANUEL faxed clinical updates to Iván at [facility]. JOSÉ MANEUL Joy advised that Iván made contact with her to review patient's needs. Iván advised they could accept patient for hospice if needed and room and board would be $260 per day. JOSÉ MANUEL will continue to follow.
--- NOTE | 2020-04-05 17:00 | NUR ---
Sedation vacation started at 1400, anticipate extubation at 1730
--- NOTE | 2020-04-05 17:31 | NUR ---
Patient sitting up in bed, follows commands. Ok to proceed with extubation. Extubated by RT with this nurse at bedside. in room per her request. O2 applied per oxymask
--- NOTE | 2020-04-05 17:37 | NUR ---
[T EXTUBATED PER DR. FORTUNE @ 9190. @ BEDSIDE. [address] PT AWAKE AND ASKING FOR WATER. PT APPEARS TO TRACK AND FOLLOW SIMPLE INSTRUCTIONS. SPO2 ON 3 LPM OM 95%
--- NOTE | 2020-04-05 18:30 | NUR ---
Patient has increased WOB, stridor, unable to protect airway at this time. Dr. Amador notified, states to have anesthesia reintubate and resume all previous orders. notified and consent reciecved. 1842 Joelle HOSPITALITY DIRECTOR at bedside for intubation. 1849 Intubated with 7.5 ET tube, 23 at [facility]. OG placed at 58cm, to ARLENE.
--- NOTE | 2020-04-05 19:15 | NUR ---
Bedside report received from LANE Walters. Patient recently re-intubated. VS stable. Assisted with repositioning. Medium soft formed stool noted. Ninfa-care provided. Soft wrist restraints in place. Will continue to monitor.
--- NOTE | 2020-04-05 19:17 | NUR ---
HEATER CURRENTLY WARMING UP.
--- NOTE | 2020-04-05 19:20 | NUR ---
CALLED BY RN AT 1835 TO COME TO ICU QUICKLY PATIENT NEED A BRETHING TREATMENTS AND TO ASSES. UPON ARRIVAL PATIENT WAS HAVING STRIDOR NOISE COMING FROM UPPER AIRWAY, AND COULD HEAR GURRGLING ON SECRETIONS. GAVE BREATHING TREATMENT BUT PATIENT WAS STILL HAVING STRIDOR NOISES COMING FROM UPPER AIRWAY AND IMMEDIANTLEY STARTED GURGGLING ON SECRETIONS AGAIN. PATIENT DID HAVE A STRONG COUGH BUT STILL UNABLE TO MOVE SECRETIONS. DETERMINED THAT PATIENT WAS UNABLE TO PROTECT AIRWAY. RN AGREED AND PROCEEDED TO CALL DR. FORTUNE, WHO AGREED TO INTUBATION. AT 1850 PATIENT WAS INTUBATEDD WITH A 7.5 ETT 23@ TEETH, BILATERAL BREATH SOUNDS WERE HEARD AND ENDTIDAL WAS ADEQUATE WITH YELLOW COLOR. CHEST X-RAY WAS OBTAINED TO VERIFY PLACEMENT. PLACED PATIENT ON PREVIOUS SETTING FROM THE DAY. ACVC TIDAL VOLUME OF 380, RATE 16, PEEP OF 5, FIO2 30%.
--- NOTE | 2020-04-05 20:31 | NUR ---
Patient spontaneously opened eyes and has been observed moving all extremities on bed. Not following commands at this time. VS will continue to monitor.
[2020-04-05 21:24] LABS: ARTERIAL BLD GAS O2 SATURATION 95.2 % (92-100); ARTERIAL BLD GAS TCO2 CT 25.9; ARTERIAL BLOOD GAS BASE EXCESS 0.3 (-2-2); ARTERIAL BLOOD GAS HCO3 24.7 meq/L (22-26); ARTERIAL BLOOD GAS PCO2 38.8 mmHg (35-45); ARTERIAL BLOOD GAS PO2 78.2 mmHg (80-100); ARTERIAL BLOOD GAS pH 7.42 (7.35-7.45)
[2020-04-06] VITALS (773 sets, daily range): BP systolic 128–155; BP diastolic 56–84; PULSE 53–77; TEMP 97.5–98; O2SAT 92–100
--- NOTE | 2020-04-06 01:00 | NUR ---
Blood glucose 58. Hospitalist notifed; will follow hypoglycemic protocol.
[2020-04-06 04:51] LABS: MEAN CELL VOLUME 75 fl (80.0-100.0); MEAN CORPUSCULAR HGB CONC 29 g/dl (33.0-37.0); MEAN PLATELET VOLUME 9.2 fl (7.4-10.4); PLATELET COUNT 338 K/mm3 (130-400); REDCELL DISTRIBUTION WIDTH-CV 26.9 % (11.5-14.5)
[2020-04-06 04:56] LABS: HEMATOCRIT 26.4 % (42.0-52.0); HEMOGLOBIN 7.7 g/dl (13.5-18.0); MEAN CORPUSCULAR HEMOGLOBIN 22 pg (27.0-31.0)
[2020-04-06 05:03] LABS: CALCIUM 7.7 mg/dL (8.4-10.2); CREATININE, serum 0.49 (0.66-1.25); MAGNESIUM 1.8 mg/dL (1.6-2.3); PHOSPHOROUS 3.6 mg/dL (2.5-4.5); POTASSIUM 3.4 mmol/L (3.4-5.0)
--- NOTE | 2020-04-06 05:10 | NUR ---
Called [facility] and spoke with Dr. Nguyen regarding patient's decreased urine output, low blood glucose levels and HB& of 7.7. Received order to re-start tube feed with free water flushes at last rate. Patient is hemodynamically stable at this time. Urine output has been 30-60 ml /hr throughout the shift until last 2 hours in which it has decreased to 15-20 ml/hr.
[2020-04-06 05:19] LABS: ARTERIAL BLD GAS O2 SATURATION 95.1 % (92-100); ARTERIAL BLOOD GAS BASE EXCESS 1.8 (-2-2); ARTERIAL BLOOD GAS HCO3 25.8 meq/L (22-26); ARTERIAL BLOOD GAS PO2 75.6 mmHg (80-100); ARTERIAL BLOOD GAS pH 7.45 (7.35-7.45)
--- NOTE | 2020-04-06 06:20 | NUR ---
Patient has had 3 brief episodes where oxygen has desaturated to 40's-70% on RA while sleeping. 02 increased almost immediately with verbal stimuli and elevating HOB. Currenltly on RA with oxyen 94-96%.
--- NOTE | 2020-04-06 09:00 | NUR ---
PICC intact right upper arm with sterile dressing change done with insertion site cleansed with chloraprep x 1, chlorhexidine impregnated disk applied, skin prep, stat lock, and tegaderm applied. no signs or symptoms of IV complications noted. re-wrapped with laura to protect catheter.
[2020-04-06 17:10] LABS: HEMATOCRIT 27.5 % (42.0-52.0)
[2020-04-07] VITALS (809 sets, daily range): BP systolic 131–162; BP diastolic 56–68; PULSE 56–64; TEMP 97–98.3; O2SAT 85–100
[2020-04-07 05:46] LABS: MEAN CELL VOLUME 75 fl (80.0-100.0); MEAN CORPUSCULAR HGB CONC 31 g/dl (33.0-37.0); MEAN PLATELET VOLUME 9.6 fl (7.4-10.4); PLATELET COUNT 340 K/mm3 (130-400); RED BLOOD COUNT 3.47 M/mm3 (4.20-5.60); REDCELL DISTRIBUTION WIDTH-CV 27.9 % (11.5-14.5)
[2020-04-07 05:50] LABS: ARTERIAL BLD GAS O2 SATURATION 95.3 % (92-100); ARTERIAL BLD GAS TCO2 CT 24.6; ARTERIAL BLOOD GAS BASE EXCESS -1.2 (-2-2); ARTERIAL BLOOD GAS HCO3 23.4 meq/L (22-26); ARTERIAL BLOOD GAS PCO2 38.6 mmHg (35-45); ARTERIAL BLOOD GAS PO2 80.8 mmHg (80-100)
[2020-04-07 05:58] LABS: HEMATOCRIT 25.9 % (42.0-52.0); HEMOGLOBIN 7.9 g/dl (13.5-18.0); MEAN CORPUSCULAR HEMOGLOBIN 23 pg (27.0-31.0)
[2020-04-07 06:01] LABS: CALCIUM 7.4 mg/dL (8.4-10.2); CREATININE, serum 0.47 (0.66-1.25); MAGNESIUM 1.7 mg/dL (1.6-2.3); PHOSPHOROUS 3.6 mg/dL (2.5-4.5); POTASSIUM 4.2 mmol/L (3.4-5.0)
--- NOTE | 2020-04-07 12:27 | NUR ---
PT in working with patient.
--- NOTE | 2020-04-07 16:50 | NUR ---
PROPOFOL DECREASED FROM 35MCG/KG/MIN TO 20MCG/KG/MIN. PT OPENS EYES TO VOICE. PT ABLE TO FOLLOW COMMANDS SUCH JINGLE WRITER HANDS EQUALLY AND MOVE ALL EXTREMETIES. PT PUPIL SLUGGISH BUT RESPONSIVE. PT ATTEMPTNG TO REACH FOR ET TUBE AND BECOMING TACHYPNIC. SEDATION INCREASED.
[2020-04-08] VITALS (664 sets, daily range): BP systolic 140–157; BP diastolic 59–67; PULSE 58–76; TEMP 96.4–98.1; O2SAT 91–100
[2020-04-08 05:58] LABS: ARTERIAL BLD GAS O2 SATURATION 94.9 % (92-100); ARTERIAL BLD GAS TCO2 CT 25.5; ARTERIAL BLOOD GAS BASE EXCESS 0.3 (-2-2); ARTERIAL BLOOD GAS HCO3 24.4 meq/L (22-26); ARTERIAL BLOOD GAS PCO2 36.9 mmHg (35-45); ARTERIAL BLOOD GAS PO2 76.1 mmHg (80-100); ARTERIAL BLOOD GAS pH 7.44 (7.35-7.45)
[2020-04-08 06:22] LABS: MEAN CELL VOLUME 75 fl (80.0-100.0); MEAN CORPUSCULAR HGB CONC 29 g/dl (33.0-37.0); PLATELET COUNT 375 K/mm3 (130-400); RED BLOOD COUNT 3.74 M/mm3 (4.20-5.60); REDCELL DISTRIBUTION WIDTH-CV 28.3 % (11.5-14.5)
[2020-04-08 06:30] LABS: HEMATOCRIT 28.2 % (42.0-52.0); HEMOGLOBIN 8.3 g/dl (13.5-18.0); MEAN CORPUSCULAR HEMOGLOBIN 22 pg (27.0-31.0)
[2020-04-08 06:32] LABS: CALCIUM 7.7 mg/dL (8.4-10.2); CREATININE, serum 0.51 (0.66-1.25); MAGNESIUM 1.8 mg/dL (1.6-2.3); PHOSPHOROUS 3.8 mg/dL (2.5-4.5); POTASSIUM 4.4 mmol/L (3.4-5.0)
--- NOTE | 2020-04-08 07:15 | NUR ---
Bedside report received from Ken. Lopez sitting on side of bed with breakfast tray. Lucy at bedside at this time.
--- NOTE | 2020-04-08 13:00 | NUR ---
Around this time, approximately, pts spouse was at bedside. Explained the need to follow Contact protocol with isolation PPE, and was agreeable. Asked this nurse questions about how pt will do with extubation as well as how labs were this morning. Reviewed labs with spouse at this time, until no further questions were asked. Questions continued to be encouraged. Discussed plan for extubation in the morning with regards to discontinuing tube feeds, sedation and then trial for extubation. Planning on leguillon debeader, between the times of [address] Amador arrives. Was unable to appropriately or accurately provide information regarding how pt will do with extubation. Questions encouraged to be directed to Dr. Amador. Spouse encouraged to be present at time of extubation.
--- NOTE | 2020-04-08 17:00 | NUR ---
Due to pt extubation tomorrow. Pt will not complete sedation vacation this evening.
--- NOTE | 2020-04-08 19:35 | NUR ---
Pt report provided to Ijeoma SHERMAN. Pts spouse called. Plans on being here for extubation tomorrow at 0630. Confirmed that another family member will not be allowed inside the building at this time due to COVID precautions. Expressed verbal understanding.
--- NOTE | 2020-04-08 19:58 | NUR ---
bedside report received from LANE Rogers. All lines, tubes, and medications confirmed. Transfer of care at this time.
--- NOTE | 2020-04-08 20:00 | NUR ---
Patient resting on the vent at this time. Assessment complete, see shift assessment for details. OG tube noted to be out to 48cm, reinserted to 57cm and retaped. Confirmed via auscultation. Patient follows commands and answers yes and no questions. Denies pain. Repositioned for comfort. Will continue to monitor. Call light within reach.
[2020-04-09] VITALS (735 sets, daily range): BP systolic 121–148; BP diastolic 58–69; PULSE 58–107; TEMP 97.6–100.1; O2SAT 37–100
[2020-04-09 04:31] LABS: ARTERIAL BLD GAS O2 SATURATION 98.3 % (92-100); ARTERIAL BLOOD GAS HCO3 27.1 meq/L (22-26); ARTERIAL BLOOD GAS PCO2 39.7 mmHg (35-45); ARTERIAL BLOOD GAS PO2 108.6 mmHg (80-100); ARTERIAL BLOOD GAS pH 7.45 (7.35-7.45)
--- NOTE | 2020-04-09 05:00 | NUR ---
Patient's sedation vacation started at this time. Propofol turned completely off per Dr. Amador to prepare for extubation.
[2020-04-09 05:26] LABS: MEAN CELL VOLUME 77 fl (80.0-100.0); MEAN CORPUSCULAR HGB CONC 29 g/dl (33.0-37.0); MEAN PLATELET VOLUME 9.3 fl (7.4-10.4); PLATELET COUNT 384 K/mm3 (130-400); RED BLOOD COUNT 3.77 M/mm3 (4.20-5.60); REDCELL DISTRIBUTION WIDTH-CV 29.2 % (11.5-14.5)
[2020-04-09 05:28] LABS: HEMATOCRIT 28.9 % (42.0-52.0); HEMOGLOBIN 8.5 g/dl (13.5-18.0); MEAN CORPUSCULAR HEMOGLOBIN 23 pg (27.0-31.0)
[2020-04-09 05:42] LABS: ALBUMIN 2.5 gm/dL (3.5-5.0); BILIRUBIN,TOTAL 0.2 mg/dL (0.0-1.0); CALCIUM 7.8 mg/dL (8.4-10.2); CREATININE, serum 0.51 (0.66-1.25); MAGNESIUM 1.6 mg/dL (1.6-2.3); PHOSPHOROUS 3.6 mg/dL (2.5-4.5); POTASSIUM 3.8 mmol/L (3.4-5.0); TOTAL PROTEIN 5.6 gm/dL (6.4-8.2)
[2020-04-09 05:49] LABS: PRE ALBUMIN 9.9 mg/dL (17.6-36.0)
--- NOTE | 2020-04-09 06:44 | NUR ---
PT ON CPAP TRIAL 10/24 WITH NO DISTRESS NOTED AT THIS TIME VICENTE WELL.
--- NOTE | 2020-04-09 07:30 | NUR ---
Bedside report given to LANE Hermosillo and LANE Murphy. All lines, tubes, and medications confirmed. Transfer of care at this time.
--- NOTE | 2020-04-09 11:01 | NUR ---
Block Tester faxed clinical updates to Iván at [facility]. Patient may be extubated this afternoon. SW will continue to follow.
--- NOTE | 2020-04-09 12:15 | NUR ---
PATIENT EXTUBATED AT 1215. EXTUBATED AND PUT ON 7L OF O2 VIA OXYMASK. TOLERATED EXTUBATION WELL. PLACED SCOPOLAMINE PATCH TO HELP REDUCE SECRETIONS. APPEARED DROWSY AFTER EXTUBATION, NOT FOLLOWING SIMPLE COMMANDS. WILL CONTINUE TO MONITOR.
--- NOTE | 2020-04-09 12:24 | NUR ---
Katherine RN and this nurse SPOKE WITH AT LENGTH ABOUT CODE STATUS. EXPLAINED COMPRESSIONS, COMFORT MEASURES AND CURRENT CARE. continues to want to extubate. Once extubated patient will be DNR/DNI. Confirmed new orders with Dr. Stewart with an update on patient status. Dr Amador also aware of pt condition and 's wanting to extubate.
--- NOTE | 2020-04-09 19:24 | NUR ---
Bedside report given to LANE Raphael. All questions regarding patient answered. IV pumps checked and verified.
--- NOTE | 2020-04-09 20:00 | NUR ---
Patient resting in bed. Sleeps between disturbances and alternately pulls at monitoring equipment. Assessment complete, see shift assessment for details. Patient does intermittently cough which sounds productive, but he does not spit anything out. Patient requests water, let him know the best I could do right now is a swab to wet his mouth. Patient is unhappy about this, but takes swab. Patient has no complaints of pain. He follows commands and is oriented x3. Patient has no further needs at this time. Will continue to monitor. Call light within reach.
--- NOTE | 2020-04-09 22:00 | NUR ---
Patient has been refusing to keep his oxygen on or his O2 monitor. Patient pulls the oxymask off as soon as staff leaves the room. Attempted changing to nasal cannula with no success. He pulls that off as well. Patient continually pulls off the O2 probe, and his feet are too cold to get a reading. Ear lobe probe is also pulled off as soon as staff leaves the room. Will attempt to spot check his O2 frequently to see how hes doing.
[2020-04-10] VITALS (250 sets, daily range): BP systolic 151–174; BP diastolic 60–85; PULSE 77–102; TEMP 97.8–98.5; O2SAT 72–99
--- NOTE | 2020-04-10 01:08 | NUR ---
Patient blood sugar is low. Called and discussed with LANE Barker at [facility]. Discussed increasing the D5NS vs starting D10W. Recommend was to change to D10W and recheck sugar in an hour and again with morning labs.
--- NOTE | 2020-04-10 03:47 | NUR ---
Ligia calls at this time to check on patient's blood sugar. Blood sugar reads at 39. One amp of D50 pushed through PICC line. Patient is awake and talking, he is moving all limbs and following commands. No seizure activity.
--- NOTE | 2020-04-10 04:35 | NUR ---
Patient's blood sugar checked again and is now 118. Will continue to monitor closely.
--- NOTE | 2020-04-10 07:10 | NUR ---
RECEIVED REPORT FROM LANE DOVE. RT AT BEDSIDE ADMINSTERING BREATHING TX. PT ASLEEP. FC PATENT AND DRAINING TO GRAVITY. VSS.
--- NOTE | 2020-04-10 07:17 | NUR ---
Bedside report given to LANE Pond
[2020-04-10 07:25] LABS: BASO # 0.1 (0.0-0.2); BASO % 0.6 % (0.0-2.0); EOS % 0.2 % (0-4.0); GRAN # 10.6 (1.4-6.5); GRAN % 87.4 % (42.2-75.2); LYMPH # 0.9 (1.2-3.4); MEAN CELL VOLUME 77 fl (80.0-100.0); MEAN CORPUSCULAR HGB CONC 29 g/dl (33.0-37.0); MEAN PLATELET VOLUME 9.5 fl (7.4-10.4); MONO # 0.5 (0.1-0.6); MONO % 3.9 % (1.7-9.3); PLATELET COUNT 453 K/mm3 (130-400); RED BLOOD COUNT 4.12 M/mm3 (4.20-5.60); REDCELL DISTRIBUTION WIDTH-CV 29.6 % (11.5-14.5)
[2020-04-10 07:27] LABS: HEMATOCRIT 31.8 % (42.0-52.0); HEMOGLOBIN 9.2 g/dl (13.5-18.0); MEAN CORPUSCULAR HEMOGLOBIN 22 pg (27.0-31.0)
[2020-04-10 07:32] LABS: ALBUMIN 2.6 gm/dL (3.5-5.0); BILIRUBIN,TOTAL 0.3 mg/dL (0.0-1.0); CREATININE, serum 0.5 (0.66-1.25); MAGNESIUM 1.7 mg/dL (1.6-2.3); POTASSIUM 3.6 mmol/L (3.4-5.0)
--- NOTE | 2020-04-10 07:47 | NUR ---
DR FORTUNE AT BEDSIDE FOR ASSESSMENT. DISCUSSED FSBS LAST NIGHT AND CHANGES TO IVF. NEW ORDERS RECEIVED.
--- NOTE | 2020-04-10 08:56 | NUR ---
NURSING BEDSIDE SWALLOW PERFROMED. NO CHOKING NOTED WITH FIRS THREE SMALL SIPS BUT BY THE THIRD ONE HE DID COUGH BUT NO DROP IN POX NOTED. PT ABLE TO FOLLOW INSTRUCTIONS TO COUGH. VSS.
--- NOTE | 2020-04-10 10:58 | NUR ---
DR GAGNON NOTIFIED OF BEDSIDE SWALLOW, IVF CHANGES, FSBS, AND PT'S REQUEST FOR FOOD. NEW ORDERS RECEIVED. PHYSICIAN AT BEDSIDE FOR ASSESSMENT.
--- NOTE | 2020-04-10 13:58 | NUR ---
Resident Care Spec contacted patient's , Candis to check in. Candis states she is doing okay. Candis would like to set up financial DPOA for patient and JOSÉ MANUEL advised she would need to consult an transportation manager for this. JOSÉ MANUEL also followed up with Candis about Medicaid Application. Candis states she has not been able to return Pamela Financial Counselor's call. JOSÉ MANUEL collaborated with Pamela who advised she called Candis again today and Candis requested to come in to meet with Pamela on to complete Medicaid Application. JOSÉ MANUEL contacted Iván at [facility] [employer] and faxed clinical updates. JOSÉ MANUEL will continue to follow.
--- NOTE | 2020-04-10 16:00 | NUR ---
COCCYX DRESSING CHANGED. NOTED STAGE 3 DECUBITIS TO COCCYX. FOUL SMELL NOTED. INCH IN LENGTH AND ABOUT HALF INCH DEEP. WHITE CENTER WITH PINK OUTER. NO SLOUGHING NOTED AT THIS TIME. INFORMED CHAPIS MCKINLEY. WELLHEAD PUMPER NOTIFIED. WILL ENCOURAGE DRESSING CHANGES AND CLEANING AT LEAST QSHIFT.
--- NOTE | 2020-04-10 18:00 | NUR ---
SPOKE WITH CHAPIS WHITFIELD ABOUT PT'S INFORMING RN THAT PT AT HOME WILL PICK AT SKIN BECAUSE HE "FEELS LIKE THINGS ARE CRAWLING ON HIM," AND TAKES A MEDICATION AT HOME TO HELP. NEW ORDERS RECEIVED. ROSEANN INFORMED ABOUT PT CONTINUOUSLY EVEN AFTER MULTIPLE ATTEMPTS TO TALK TO PT ABOUT NOT PICKING, THAT PT HAS OPENED HIS HEAD SORE THAT IS BIGGER THAN HALF DOLLAR SIZE AND IS BLEEDING AND HAS PICKED OPEN HIS LFA WOUND, DRESSING IN PLACE NOW ON LFA. NOTED PT TO NOW START PULLING AT DONNA WRAP ON PICC LINE. ATTEMPTS MADE TO EDUCATE PT THAT IT WOULD BE BAD TO PULL OUT PICC LINE. LINE REWRAPPED. WILL MONITOR CLOSELY.
--- NOTE | 2020-04-10 21:13 | NUR ---
1953: Pt is picking at head, BUE, PICC line, removing dressings, removing oxygen and spo2 probe, unable to reorient pt and to get him to stop picking and remving monitoring devices. Scheduled Atarax given, states this is what he takes at home for the picking. 2029: Soft mits put into place to Bilat hands, pt conitnues to pick at everything and removed monitoring devices, pt has begun picking and pulling on johnson and PICC line. Pt reoriented without success many times. 2109: Pt conitnues to remove and pick and skin and montoring devices, johnson and PICC line. Pt removed mitts and is picking at head, blood noted to bilat hand and fingers, pillow cases, sheets, blankets, gown. wrap partially removed from dressing on left forearm, picking at laura wrap on picc line to DIONNE and pulling at picc ports and tubing. Pt orietned to why he is here and the importance of monitoring and picc line/johnson. PRN dose of IV ativan given at this time.
[2020-04-11] VITALS (314 sets, daily range): BP systolic 124–169; BP diastolic 64–83; PULSE 86–94; TEMP 97.4–98.3; O2SAT 63–100
--- NOTE | 2020-04-11 03:29 | NUR ---
Pt is on oxymask 3L, agonal breathing and use of abd accessory muscles, rate 18-22. Oxygen sat at 95% with dips into the 70-80s. Pt lung sounds are more coarse with a cough that pt is unable to clear. Respiratory in room for breathing treatment with no improvement. Pt opens eyes to verbal stimuli. BP and HR stable. Ligia called, titrate to keep sats above 90 %, no other new orders.
[2020-04-11 05:34] LABS: BASO # 0.1 (0.0-0.2); BASO % 0.4 % (0.0-2.0); EOS # 0.1 (0.0-0.7); EOS % 1.1 % (0-4.0); GRAN # 9.5 (1.4-6.5); GRAN % 83.2 % (42.2-75.2); LYMPH # 1.2 (1.2-3.4); LYMPH % 10.2 % (20.0-51.0); MEAN CELL VOLUME 76 fl (80.0-100.0); MEAN CORPUSCULAR HGB CONC 29 g/dl (33.0-37.0); MEAN PLATELET VOLUME 8.6 fl (7.4-10.4); MONO # 0.5 (0.1-0.6); MONO % 4.6 % (1.7-9.3); PLATELET COUNT 425 K/mm3 (130-400); RED BLOOD COUNT 3.99 M/mm3 (4.20-5.60)
[2020-04-11 05:35] LABS: HEMATOCRIT 30.4 % (42.0-52.0); HEMOGLOBIN 8.8 g/dl (13.5-18.0); MEAN CORPUSCULAR HEMOGLOBIN 22 pg (27.0-31.0)
[2020-04-11 05:42] LABS: ALBUMIN 2.5 gm/dL (3.5-5.0); BILIRUBIN,TOTAL 0.3 mg/dL (0.0-1.0); CALCIUM 7.7 mg/dL (8.4-10.2); CREATININE, serum 0.46 (0.66-1.25); POTASSIUM 3.8 mmol/L (3.4-5.0); TOTAL PROTEIN 5.7 gm/dL (6.4-8.2)
--- NOTE | 2020-04-11 13:00 | NUR ---
Report called to LANE FRANCIS. Patient transfered to medical unit room 356 via bed. Chart sent with patient. Bedside report given. Patients belongings sent with him.
--- NOTE | 2020-04-11 13:22 | NUR ---
PT GURGLING WITH BREATHING, LETHARGIC, WILL OPEN EYES TO NAME, WILL OBEY SOME COMMANDS, WILL NOT ANSWER QUESTIONS WITH SPEECH, ASSESSMENT PERFORMED, PT SETTLED IN, FLUIDS HANGING. PT APPEARS COMFORTABLE AT THIS TIME. PT HAS MITTS ON.
--- NOTE | 2020-04-11 13:42 | NUR ---
Industrial Welder attended clinical rounds with the team and patient to transfer to the floor today. Palliative Care Consult ordered. JOSÉ MANUEL collaborated with Elena Palliative RN. JOSÉ MANUEL and Elena contacted patient's , Candis who states she will be coming into the hospital to meet with Elena in person. SW to continue to follow.
--- NOTE | 2020-04-11 15:09 | NUR ---
Family meeting with Candis and two of pt's sons. Spoke with them about Matt being hospital dependent and that we are at a cross roads of either pursuing watermaster acute care where he would be a distance away to try to get stronger and better or pursuing a more comfort based care like hospice to keep him comfortable and let him live out his time comfortably. Family would like to talk as a group to reach a decision although today they are verbalizing a desire for comfort and remaining local. We will continue current care until they reach a decision. They are anticipating family getting together in next day or so. Going home is not an option for care. They would consider care at [facility] or another [facility] locally. They would consider [facility] but we are advised that they have no vacancies at this time. is very tearful and emotional at this time. Son do appear very supportive of her. They did meet Shanna social work assistant during the meeting and are aware that we will work together to help Candis and the family during this difficult time.
--- NOTE | 2020-04-11 15:10 | NUR ---
Plumbing And Heating Mechanic attended family meeting with Elena Gold, Palliative Care Nurse, the patient's , Candis and his sons, Corwin and Otis. Elena discussed goals of care with them. Elena explained if they wanted to continue with care a LTACH will be appropiate. If they would like to go comfort care/hospice their choices are a snf with hospice or home with hospice. They do not like the idea of taking the patient home with hospice. They were informed that the [facility] was full. They would likely choice a snf with hospice. Candis would like to have a family meeting before making a decision. SW collaborated the above information with the patient's nurse.
--- NOTE | 2020-04-11 18:10 | NUR ---
PT SLEEPING IN ROOM, LETHARGIC, OXYGEN ON PT BUT HE TAKES IT OFF FREQUENTLY, PT FOLLOWS SOME COMMANDS. NO OTHER NEEDS AT THIS TIME. MORPHINE GIVEN FOR COMFORT.
--- NOTE | 2020-04-11 20:00 | NUR ---
Assessment complete. Patient wears 4 liters 02 via oxymask; He is satting 96%. Patient is resting and does not appear to be in pain. He swallows pills with applesauce. Patient is not oriented and is drowsy. Stage III ulcer on coccyx has minimal drainage that is foul smelling; wound cleansed with NS and a new mepilex is applied. Turning schedule is implemented. Will continue to monitor.
[2020-04-12 03:10] VITALS: BP 159/71; PULSE 92; TEMP 97.9
--- NOTE | 2020-04-12 06:35 | NUR ---
Patient has been restless throughout the night but has not exhibited symptoms of air hunger. His oxymask was reapplied frequently, as he often took it off. Mitts remained on his hands to avoid him scratching at this injury on his head. He was turned every 2 hours throughout the night. Gallagher still draining clear, yellow urine. Penis and scrotum have remained edematous throughout shift. Patient has been somnolent and not oriented; He sometimes follows commands and can tolerate PO meds with applesauce.
[2020-04-12 08:14] VITALS: BP 154/67; PULSE 95; TEMP 97.7
--- NOTE | 2020-04-12 08:48 | NUR ---
DOWN TO 3LPM VIA OXYMASK, 95%.
--- NOTE | 2020-04-12 09:00 | NUR ---
PICC intact right upper arm with sterile dressing change done with insertion site cleansed with chloraprep x 1, chlorhexidine impregnated disk applied, skin prep, stat lock, and tegaderm applied. no signs or symptoms of IV complications noted. no concerns voiced. re-wrapped with an laura to protect catheter.
--- NOTE | 2020-04-12 09:26 | NUR ---
Pt awake and alert, Phzaira Ther currently working with Pt, medications given with applesauce, no swallowing issues noted, shift assessments complete, left Pt call light in reach, bed in lowest position, alarm on.
[2020-04-12 11:01] VITALS: BP 149/71; PULSE 94; TEMP 98
--- NOTE | 2020-04-12 15:37 | NUR ---
[employer] Manager staffed with Hospitalist regarding the patient's discharge plan. The patient is now on comfort measures. The patient's would like to return to [facility] with hospice. JOSÉ MANUEL contacted the patient's , Candis to confirm this plan. JOSÉ MANUEL discussed [employer]'s list of hospice options and [facility] was chosen. Referral faxed to Matthias with [facility] and updates were faxed to Iván at [facility]. JOSÉ MANUEL staffed with the patient's nurse regarding the patient's mitts. The patient has the mitts on due him picking on a deep tissue injury on his head and not for behaviorals that require restraints. JOSÉ MANUEL contacted Iván to provided the above update and he reports they can take the patient on 04/13 with [facility]. JOSÉ MANUEL collaborated the above information with the patient's nurse.
--- NOTE | 2020-04-12 21:50 | NUR ---
Pt assessment completed and documented. Pt resting in bed at this time. Pt very soft spoken and hard to understand. Oriented to person and time. Disoriented to place and situation. Appears comfortable and is denying pain. Pt refusing to eat dinner. States he is just thirsty. PICC to RUE CDI. Pt denies any other needs. Call light within reach. Bed alarm on. Will continue to monitor
--- NOTE | 2020-04-13 02:00 | NUR ---
Pt becoming increasingly restless in bed with legs over side rail. Called [facility] due to pt having PICC line with orders to give SQ ativan. Order changed from SQ to IV. 0.5 MG IV ativan given at this time. Will continue to monitor.
--- NOTE | 2020-04-13 05:11 | NUR ---
Pt required x1 dose of roxanol last night for respiratory distress. Pt also got 1 dose of 0.5mg IV ativan for agitation/restlessness. Pt has been resting well since administration of IV ativan. Gallagher catheter to dependent drainage. PICC to RUE CDI. Call light within reach. Bed alarm on.
--- NOTE | 2020-04-13 06:49 | NUR ---
Report given to [facility]
[2020-04-13] MEDS ORDERED: DULCOLAX S10 MG/SUPP RC (07:58)
[2020-04-13] MEDS ORDERED: KEPPRA1000 MG PO (07:58)
[2020-04-13] MEDS ORDERED: TYLENOL SU650 MG/SUP RC (07:58)
[2020-04-13] MEDS ORDERED: ROXANOL 20MG20 MG/ML SL (07:59)
[2020-04-13] MEDS ORDERED: ATIVAN 1MG T1 MG/TAB PO (07:59)
[2020-04-13 14:44] VITALS: BP 149/71; PULSE 94; TEMP 98
--- NOTE | 2020-04-13 16:08 | NUR ---
PT DISCHARGED TO [facility]FORT CARE TO [facility]IA [facility] PICC LINE INPLACE PER [place] [facility].
--- NOTE | 2020-04-13 16:09 | NUR ---
Patient is ready for discharge today. JOSÉ MANUEL collaborated with patient's , Candis about private pay cost for room and board at [facility]. Candis became upset and stated she cannot afford that, then hung up on SW. JOSÉ MANUEL attempted to contact Candis and left two messages. A short time later, JOSÉ MANUEL contacted Matthias at [facility] who reports he just met with Candis and advised her that the social work specialist team at [facility] would help her with the follow up required for Medication application, which was submitted yesterday by Pamela, Financial Counselor. JOSÉ MANUEL collaborated with Iván at [facility] who reports he has talked with Candis and patient will be admitted Medicaid pending. Patient had rapid swab ordered and results were negative. JOSÉ MANUEL faxed negative results and discharge orders to Iván at [facility] and Matthias at [facility]. JOSÉ MANUEL contacted [facility] and set transport time for [id number]. JOSÉ MANUEL provided transport time to Candis, who also provided verbal consent on transfer form. JOSÉ MANUEL placed EMS transport forms in chart and placed copies on top of chart. No additional needs at this time.
--- NOTE | 2020-04-13 16:56 | NUR ---
PT TRANSFERED TO [facility] ON [facility].
== END 2020-04-13 15:45 | disposition hospice, home (50) | DRG 208 ==
LOC: COL.ER 08:56 → MEDICAL 10:33 → ICU 10:33 → MEDICAL 04-11 13:26
PROVIDERS: Emergency Medicine; Internal Medicine; Internal Medicine Pulmonary Disease; Student in an Organized Health Care Education/Training Program
PROC: 5A1945Z Respiratory Ventilation, 24-96 Consecutive Hours (ICD-10-PCS; principal; 2020-04-01)
PROC: 0BH17EZ Insertion of Endotracheal Airway into Trachea, Via Natural or Artificial Opening (ICD-10-PCS; 2020-04-01)
PROC: 02HV33Z Insertion of Infusion Device into Superior Vena Cava, Percutaneous Approach (ICD-10-PCS; 2020-04-02)
PROC: 0BH17EZ Insertion of Endotracheal Airway into Trachea, Via Natural or Artificial Opening (ICD-10-PCS; 2020-04-05)
PROC: 5A1945Z Respiratory Ventilation, 24-96 Consecutive Hours (ICD-10-PCS; 2020-04-05)
DX: J96.01 Acute respiratory failure with hypoxia (principal); I50.23 Acute on chronic systolic (congestive) heart failure; E43 Unspecified severe protein-calorie malnutrition; I21.A1 Myocardial infarction type 2; N39.0 Urinary tract infection, site not specified; I42.9 Cardiomyopathy, unspecified; G93.40 Encephalopathy, unspecified; E11.649 Type 2 diabetes mellitus with hypoglycemia without coma; Z20.828 Contact with and (suspected) exposure to other viral communicable diseases; Z66 Do not resuscitate; E11.51 Type 2 diabetes mellitus with diabetic peripheral angiopathy without gangrene; J44.9 Chronic obstructive pulmonary disease, unspecified; N40.1 Benign prostatic hyperplasia with lower urinary tract symptoms; R33.8 Other retention of urine; R19.7 Diarrhea, unspecified; D64.9 Anemia, unspecified; B37.9 Candidiasis, unspecified; I11.0 Hypertensive heart disease with heart failure; I08.3 Combined rheumatic disorders of mitral, aortic and tricuspid valves; I25.10 Atherosclerotic heart disease of native coronary artery without angina pectoris; I25.2 Old myocardial infarction; B96.89 Other specified bacterial agents as the cause of diseases classified elsewhere; E78.5 Hyperlipidemia, unspecified; F17.210 Nicotine dependence, cigarettes, uncomplicated; Z79.4 Long term (current) use of insulin; Z79.82 Long term (current) use of aspirin
CPT/HCPCS: 99223-AI; 99232-AI; 99233-AI; 99239; C1751; J0330; J0696; J1450; J1650; J1815; J1940; J1953; J2060; J2250; J2270; J2543; J2704; J2916; J3010; J3475; J3480; J7030; J7042; P9016; Q9967